=== PATIENT | female | born 1960 | race African-American/Black ===

== ENCOUNTER → 2016-05-20 | Outpatient (CLI) | payer OTHER | LOC: WI 12:58 | PROVIDERS: ATTEND Family Medicine | DX: Z12.31 Encounter for screening mammogram for malignant neoplasm of breast (principal) | CPT/HCPCS: 77067; G0202 ==

== ENCOUNTER 2016-06-21 07:01 | Day surgery (SDC) | payer OTHER ==
[~2016-06-21 07:01] MED LIST: LACTATED RINGERS 1000 ML IV PRN; LIDOCAINE 0.5% INJ-PF (5 MG/ML) 50 ML SDV SUBCUT PRN
[2016-06-21] MEDS ORDERED: MIDAZOLAM 2 MG/2 ML INJ ONE (09:54)
[2016-06-21] MEDS ORDERED: FENTANYL CITRATE INJ/PF 100 MCG/2 ML AMPUL ONE (09:54)
[2016-06-21] MEDS ORDERED: PROPOFOL INJ 200 MG/20 ML VIAL IV ONE (09:54)
[2016-06-21] MEDS ORDERED: OXYCODONE-ACETAMINOPHEN 5-325 MG TABLET PO PRN (10:18)
[2016-06-21] MEDS ORDERED: PROMETHAZINE HCL INJ 25 MG/1 ML VIAL IV PRN ×2 (10:18)
[2016-06-21] MEDS ORDERED: FENTANYL CITRATE INJ/PF 100 MCG/2 ML AMPUL IV PRN (10:18)
[2016-06-21] MEDS ORDERED: MEPERIDINE HCL/PF INJ 25 MG/1 ML DISP.SYRIN IV PRN (10:18)
[2016-06-21] MEDS ORDERED: ONDANSETRON HCL INJ/PF 4 MG/2 ML SDV IV PRN (10:18)
[2016-06-21] MEDS ORDERED: DIPHENHYDRAMINE HCL 50 MG/ML VIAL IV PRN (10:18)
[2016-06-21] MEDS ORDERED: MORPHINE SULFATE 10 MG/ML INJ IV PRN (10:18)
--- NOTE | 2016-06-21 10:39 | Operative Report ---
Operative Report DATE OF SURGERY: 06/21/16 Operative Report: The risks, benefits and alternatives of the procedure including risks of bleeding, perforation requiring surgery I explained to the patient detail and informed consent is obtained. Patient is placed in a left lateral decubital position. Timeout is called. Propofol medications administered. A rectal examination was done which did not reveal any masses, tears or fissures. Olympus videoscope was inserted into the patient's rectum. The scope was then gradually advanced all the way to the cecum. Cecum was identified by the usual anatomical landmarks including the ileocecal valve as well as the appendiceal office. Photo documentations obtained. Scope was then sequentially pulled back via the various segments of the colon including the ascending colon, hepatic flexure, transverse colon, splenic flexure, descending colon and finally into the rectosigmoid portion of the colon. Retroflexion maneuvers performed. PREOPERATIVE DIAGNOSIS: Colorectal cancer screening POSTOPERATIVE DIAGNOSIS: Small polyp in the rectum status post removal with forceps. Internal hemorrhoids OPERATION: Colonoscopy with biopsy SURGEON: MARYANN SCHOFIELD ANESTHESIA: LMAC TISSUE REMOVED OR ALTERED: Colon specimen retrieved COMPLICATIONS: None. ESTIMATED BLOOD LOSS: none. INTRAOPERATIVE FINDINGS: No masses, AVMs, diverticulosis noted. Internal hemorrhoids. PROCEDURE: Patient tolerated procedure well. No immediate postprocedure complications Patient discharged in good condition Discharge date 06/21/2016 Discharge diet: Regular. Discharge activity: Regular. 2-3 week follow-up to discuss findings We'll await on biopsies 10 year surveillance is biopsies are negative Patient is instructed to call the office or proceed to the emergency room should there be any further problems or questions.
[2016-06-21] MEDS ORDERED: VALSARTAN 160 MG TABLET PO SCH (12:00)
[2016-06-21 13:09] VITALS: BP 132/92
== END 2016-06-21 12:02 | disposition home or self-care (01) ==
LOC: OROUT 07:01
PROVIDERS: ATTEND Internal Medicine Gastroenterology
PROC: 0DBB8ZX Excision of Ileum, Via Natural or Artificial Opening Endoscopic, Diagnostic (ICD-10-PCS; principal; 2016-06-21 09:15)
DX: Z12.11 Encounter for screening for malignant neoplasm of colon (principal); K64.8 Other hemorrhoids; I10 Essential (primary) hypertension; K63.5 Polyp of colon
CPT/HCPCS: 45380; 81025; 88305 ×2; J2250; J3010; J2704; 810